=== PATIENT | female | born 1985 | race African-American/Black ===

== ENCOUNTER 2017-11-17 16:54 | Emergency (ER) | END 2017-11-17 19:43 | disposition home or self-care (01) ==

== ENCOUNTER 2017-11-19 09:13 | Emergency (ER) | END 2017-11-19 10:32 | disposition home or self-care (01) ==

== ENCOUNTER 2017-11-21 18:52 | Emergency (ER) | END 2017-11-21 20:13 | disposition home or self-care (01) ==